=== PATIENT | male | born 1995 | race Caucasian/White ===

== ENCOUNTER 2020-07-11 18:54 | Emergency (ER) | payer BC, OTHER ==
[~2020-07-11] VITALS: Ht 180.3 cm; Wt 79.4 kg
[2020-07-11] MEDS ORDERED: SILVER SULFADIAZINE 1 % TOPICAL CREAM 50GM TOP ONE (20:15)
[2020-07-11 20:55] VITALS: BP 127/80
== END 2020-07-11 21:19 | disposition home or self-care (01) ==
LOC: ER 18:54
DX: T23.251A Burn of second degree of right palm, initial encounter (principal); X08.8XXA Exposure to other specified smoke, fire and flames, initial encounter; Y93.89 Activity, other specified; Y92.89 Other specified places as the place of occurrence of the external cause; Y99.8 Other external cause status
CPT/HCPCS: 16020